=== PATIENT | female | born 1945 | race Asian ===

== ENCOUNTER 2025-05-19 11:25 | Inpatient (IN) | payer OTHER ==
[~2025-05-19] VITALS: Ht 160 cm; Wt 52.9 kg
[2025-05-19] MEDS ORDERED: AMLO-257 PO (11:48)
[2025-05-19 12:05] LABS: COVID AG,FIA SOURCE NASAL SWAB
[2025-05-19 12:09] LABS: PLATELET COUNT (AUTO) 271 K/uL (150-450); RED BLOOD CELL COUNT(AUTO) 4.44 MIL/uL (4.00-5.20); RED CELL DISTRIBUTION WIDTH 14.3 % (11.5-14.5); WHITE BLOOD COUNT (AUTO) 5.0 K/uL (4.5-11.0)
[2025-05-19 12:23] LABS: INFLUENZA TYPE A NEGATIVE FOR TYPE A (NEGATIVE); INFLUENZA TYPE B NEGATIVE FOR TYPE B (NEGATIVE); SARS-COV2 (COVID) ANTIGEN,FIA Negative (Negative)
[2025-05-19 12:26] LABS: CALCIUM, TOTAL 9.9 mg/dL (8.8-10.5); CREATININE 0.96 mg/dL (0.60-1.30); GLOMERULAR FILTR. RATE CALC 56.0 mL/min (>60); GLUCOSE,RANDOM 138.0 mg/dL (70-110); SODIUM SERUM 136.0 mmol/L (136-145); UREA NITROGEN, BLOOD 18.0 mg/dL (7-18)
[2025-05-19 12:31] LABS: APPEARANCE,URINE HAZY (CLEAR); GLUCOSE, URINE (UA) >=1000 mg/dL (NEGATIVE); LEUKOCYTE ESTERASE ,URINE LARGE (NEGATIVE); NITRATE,URINE NEGATIVE (NEGATIVE); OCCULT BLOOD,URINE SMALL (NEGATIVE); SPECIFIC GRAVITIY, URINE 1.007 (1.003-1.030)
[2025-05-19 12:40] LABS: BAND NEUTROPHILS % (MANUAL) 12 % (0-5); LYMPHOCYTES % (MANUAL) 13 % (22-44); MONOCYTES % (MANUAL) 2 % (2-9); SEGMENTED NEUTROPHILS % 73 % (40-70)
[2025-05-19 12:46] LABS: SQUAMOUS EPITHELIAL CELL,UR Moderate /LPF (None Seen)
[2025-05-19] MEDS: KETOROLAC TROMETHAMINE 30 MG/ML VIAL IVP ONE (14:08)
[2025-05-19] MEDS: SODIUM CHLORIDE 0.9% 1,000 ML IV ONE (14:08)
[2025-05-19] MEDS: CefTRIAXone 1 GM/DEXTROSE 50 ML IV ONE (14:08)
[2025-05-19] MEDS: ACETAMINOPHEN 500 MG TABLET PO ONE (14:16)
[2025-05-19 14:56] LABS: LACTIC ACID 1.0 mmol/L (0.4-2.0)
[2025-05-19] MEDS: SODIUM CHLORIDE 0.9% 1,050 ML IV ONE (15:19)
[2025-05-19] MEDS ORDERED: DEXTROSE 50%-WATER 25 GM/50 ML SYRINGE IVP PRN (22:15)
[2025-05-19] MEDS ORDERED: MAGNESIUM HYDROXIDE SUSPENSION 30 ML UDCUP PO PRN (22:15)
[2025-05-19] MEDS ORDERED: BISACODYL 10 MG RECTAL RECTAL SUPPOSITORY PR PRN (22:15)
[2025-05-19] MEDS ORDERED: MORPHINE SULFATE 2 MG/ML SYRINGE IVP PRN (22:15)
[2025-05-19] MEDS ORDERED: ONDANSETRON HCL 4 MG/2 ML VIAL IVP PRN (22:15)
[2025-05-19] MEDS ORDERED: ALBUTEROL SULFATE 2.5 MG/0.5 ML NEB SOLUTION NEB PRN (22:15)
[2025-05-19] MEDS ORDERED: HYDROCODONE/ACETAMINOPHEN 5-325 MG TABLET PO PRN (22:15)
[2025-05-19] MEDS ORDERED: ZOLPIDEM TARTRATE 5 MG TABLET PO PRN (22:15)
[2025-05-19] MEDS ORDERED: IPRATROPIUM BROMIDE 0.5 MG/2.5 ML NEB SOLUTION NEB PRN (22:15)
[2025-05-19] MEDS ORDERED: LOSA-381 PO (22:20)
[2025-05-19] MEDS ORDERED: ATOR10TA69 PO (22:20)
[2025-05-19] MEDS ORDERED: METF-1211 PO (22:20)
[2025-05-19] MEDS ORDERED: PREG100C PO (22:21)
[2025-05-19] MEDS: HEPARIN SODIUM,PORCINE 5,000 UNITS/ML VIAL SQ SCH (23:41)
[2025-05-20] MEDS ORDERED: MORPHINE SULFATE 4 MG/ML SYRINGE IVP PRN (01:27)
[2025-05-20 02:53] VITALS: BP 128/66; PULSE 92; RESP 18; TEMP 99; O2SAT 96
[2025-05-20 06:35] LABS: GLUCOMETER DEV NAME(LOC) 4E.2; GLUCOSE,POINT OF CARE 97 MG/DL (70-110)
[2025-05-20 07:25] VITALS: BP 122/61; PULSE 87; RESP 18; TEMP 98.1; O2SAT 99
[2025-05-20] MEDS: PANTOPRAZOLE SODIUM 40 MG DR TABLET PO SCH (08:26)
[2025-05-20] MEDS: PREGABALIN 50 MG CAPSULE PO SCH (08:26)
[2025-05-20] MEDS: LOSARTAN POTASSIUM 25 MG TABLET PO SCH (08:27)
[2025-05-20] MEDS ORDERED: SODIUM CHLORIDE 0.9% 500 ML IV ONE (11:34)
[2025-05-20] MEDS: CefTRIAXone 1 GM/DEXTROSE 50 ML IV SCH (11:44)
[2025-05-20 15:20] VITALS: BP 140/63; PULSE 90; RESP 20; TEMP 99.9; O2SAT 96
[2025-05-20] MEDS: ACETAMINOPHEN 325 MG TABLET PO PRN (16:29)
[2025-05-20 16:51] LABS: GLUCOMETER DEV NAME(LOC) 4E.2; GLUCOSE,POINT OF CARE 94 MG/DL (70-110)
[2025-05-20 17:45] LABS: GLUCOMETER DEV NAME(LOC) 4E.2; GLUCOSE,POINT OF CARE 118 MG/DL (70-110)
[2025-05-20 19:25] VITALS: BP 110/55; PULSE 89; RESP 18; TEMP 99.3; O2SAT 95
[2025-05-20] MEDS: INSULIN LISPRO 100 UNITS/ML SQ PRN (21:24)
[2025-05-20 21:45] LABS: GLUCOMETER DEV NAME(LOC) 4E.2; GLUCOSE,POINT OF CARE 147 MG/DL (70-110)
[2025-05-21 05:11] VITALS: BP 130/71; PULSE 91; RESP 18; TEMP 98.1; O2SAT 96
[2025-05-21 05:41] LABS: GLUCOMETER DEV NAME(LOC) 4E.2; GLUCOSE,POINT OF CARE 115 MG/DL (70-110)
[2025-05-21 08:00] VITALS: BP 138/64; PULSE 92; RESP 20; TEMP 98.4; O2SAT 98
[2025-05-21 08:06] LABS: PLATELET COUNT (AUTO) 305 K/uL (150-450); RED BLOOD CELL COUNT(AUTO) 4.26 MIL/uL (4.00-5.20); RED CELL DISTRIBUTION WIDTH 13.9 % (11.5-14.5); WHITE BLOOD COUNT (AUTO) 6.7 K/uL (4.5-11.0)
[2025-05-21] MEDS: FLUTICASONE PROPIONATE 50 MCG/SPRAY 16 GM NASAL SPRAY NASAL SCH (08:41)
[2025-05-21 09:07] LABS: CALCIUM, TOTAL 9.0 mg/dL (8.8-10.5); CREATININE 0.67 mg/dL (0.60-1.30); GLOMERULAR FILTR. RATE CALC > 60 mL/min (>60); GLUCOSE,RANDOM 106 mg/dL (70-110); SODIUM SERUM 140 mmol/L (136-145); UREA NITROGEN, BLOOD 10 mg/dL (7-18)
[2025-05-21 09:14] LABS: ASPARTATE AMINOTRANSFERASE 30 U/L (15-37); TOTAL PROTEIN, SERUM 7.3 g/dL (6.4-8.2)
[2025-05-21] MEDS: *CLINICAL-MEROPENEM DOSING CLINICAL ONE (13:22)
[2025-05-21 14:10] LABS: GLUCOMETER DEV NAME(LOC) 4E.2; GLUCOSE,POINT OF CARE 157 MG/DL (70-110)
[2025-05-21] MEDS: MEROPENEM 1 GM in SODIUM CHLORIDE 0.9% 50 ML IV SCH (15:06)
[2025-05-21 16:00] VITALS: BP 138/66; PULSE 90; RESP 19; TEMP 99.9; O2SAT 97
[2025-05-21 20:00] VITALS: BP 121/65; PULSE 73; RESP 18; TEMP 97.8; O2SAT 99
[2025-05-21 20:01] LABS: GLUCOMETER DEV NAME(LOC) 4E.2; GLUCOSE,POINT OF CARE 116 MG/DL (70-110)
[2025-05-21 20:40] LABS: GLUCOMETER DEV NAME(LOC) 4E.2; GLUCOSE,POINT OF CARE 176 MG/DL (70-110)
[2025-05-22 04:00] VITALS: BP 151/63; PULSE 88; RESP 18; TEMP 98.8; O2SAT 97
[2025-05-22 06:06] LABS: GLUCOMETER DEV NAME(LOC) 4E.2; GLUCOSE,POINT OF CARE 180 MG/DL (70-110)
[2025-05-22 08:00] VITALS: BP 158/72; PULSE 83; RESP 18; TEMP 99.5; O2SAT 99
[2025-05-22 09:10] VITALS: TEMP 99.1
[2025-05-22 12:20] LABS: GLUCOMETER DEV NAME(LOC) 4E.2; GLUCOSE,POINT OF CARE 120 MG/DL (70-110)
[2025-05-22 16:00] VITALS: BP 151/79; PULSE 88; RESP 20; TEMP 98.6; O2SAT 98
[2025-05-22 18:01] LABS: GLUCOMETER DEV NAME(LOC) 4E.2; GLUCOSE,POINT OF CARE 162 MG/DL (70-110)
[2025-05-22 19:21] VITALS: BP 131/77; PULSE 94; RESP 18; TEMP 98.4; O2SAT 96
[2025-05-23 02:16] LABS: GLUCOMETER DEV NAME(LOC) 4E.2; GLUCOSE,POINT OF CARE 116 MG/DL (70-110)
[2025-05-23 04:43] VITALS: BP 148/69; PULSE 75; RESP 18; TEMP 98.6; O2SAT 97
[2025-05-23 07:31] LABS: GLUCOMETER DEV NAME(LOC) 4E.2; GLUCOSE,POINT OF CARE 118 MG/DL (70-110)
[2025-05-23 08:00] VITALS: BP 145/78; PULSE 69; RESP 18; TEMP 97.9; O2SAT 97
[2025-05-23 09:13] LABS: PLATELET COUNT (AUTO) 383 K/uL (150-450); RED BLOOD CELL COUNT(AUTO) 4.75 MIL/uL (4.00-5.20); RED CELL DISTRIBUTION WIDTH 14.0 % (11.5-14.5); WHITE BLOOD COUNT (AUTO) 5.8 K/uL (4.5-11.0)
[2025-05-23 09:23] LABS: CALCIUM, TOTAL 9.6 mg/dL (8.8-10.5); CREATININE 0.68 mg/dL (0.60-1.30); GLOMERULAR FILTR. RATE CALC > 60 mL/min (>60); GLUCOSE,RANDOM 123 mg/dL (70-110); SODIUM SERUM 140 mmol/L (136-145); UREA NITROGEN, BLOOD 10 mg/dL (7-18)
[2025-05-23 11:35] LABS: GLUCOMETER DEV NAME(LOC) 4E.2; GLUCOSE,POINT OF CARE 138 MG/DL (70-110)
[2025-05-23 16:09] VITALS: BP 144/74; PULSE 79; RESP 18; TEMP 97.7; O2SAT 100
[2025-05-23 17:30] LABS: GLUCOMETER DEV NAME(LOC) 4E.2; GLUCOSE,POINT OF CARE 98 MG/DL (70-110)
[2025-05-23 20:34] VITALS: BP 144/76; PULSE 84; RESP 20; TEMP 98.6; O2SAT 95
[2025-05-23 21:00] LABS: GLUCOMETER DEV NAME(LOC) 4E.2; GLUCOSE,POINT OF CARE 124 MG/DL (70-110)
[2025-05-24 04:25] VITALS: BP 148/88; PULSE 72; RESP 18; TEMP 98.2; O2SAT 98
[2025-05-24 06:10] LABS: GLUCOMETER DEV NAME(LOC) 4E.2; GLUCOSE,POINT OF CARE 108 MG/DL (70-110)
[2025-05-24 08:00] VITALS: BP 131/74; PULSE 81; RESP 19; TEMP 98.4; O2SAT 97
[2025-05-24 12:25] VITALS: BP 133/67; PULSE 78; RESP 18; TEMP 98; O2SAT 97
[2025-05-24 12:45] LABS: GLUCOMETER DEV NAME(LOC) 4E.2; GLUCOSE,POINT OF CARE 119 MG/DL (70-110)
[2025-05-24 16:00] VITALS: BP 113/69; PULSE 74; RESP 19; TEMP 98.8; O2SAT 98
[2025-05-24 17:51] LABS: GLUCOMETER DEV NAME(LOC) 4E.2; GLUCOSE,POINT OF CARE 104 MG/DL (70-110)
[2025-05-24 20:10] VITALS: BP 123/71; PULSE 88; RESP 19; TEMP 99; O2SAT 97
[2025-05-24 20:46] LABS: GLUCOMETER DEV NAME(LOC) 4E.2; GLUCOSE,POINT OF CARE 152 MG/DL (70-110)
[2025-05-24 22:20] LABS: GLUCOMETER DEV NAME(LOC) 4E.2; GLUCOSE,POINT OF CARE 137 MG/DL (70-110)
[2025-05-25 03:18] VITALS: BP 118/86; PULSE 72; RESP 18; TEMP 98; O2SAT 96
[2025-05-25 06:06] LABS: GLUCOMETER DEV NAME(LOC) 4E.2; GLUCOSE,POINT OF CARE 115 MG/DL (70-110)
[2025-05-25 09:00] VITALS: BP 131/61; PULSE 68; RESP 18; TEMP 98; O2SAT 98
[2025-05-25 12:51] LABS: GLUCOMETER DEV NAME(LOC) 4E.2; GLUCOSE,POINT OF CARE 113 MG/DL (70-110)
[2025-05-25 16:47] VITALS: BP 116/68; PULSE 72; RESP 18; TEMP 98; O2SAT 97
[2025-05-25 18:05] LABS: GLUCOMETER DEV NAME(LOC) 4E.2; GLUCOSE,POINT OF CARE 106 MG/DL (70-110)
[2025-05-25 19:24] VITALS: BP 122/66; PULSE 98; RESP 18; TEMP 97.7; O2SAT 97
[2025-05-25 23:05] LABS: GLUCOMETER DEV NAME(LOC) 4E.2; GLUCOSE,POINT OF CARE 125 MG/DL (70-110)
[2025-05-26 04:21] VITALS: BP 130/56; PULSE 63; RESP 18; TEMP 98.2; O2SAT 96
[2025-05-26 05:30] LABS: GLUCOMETER DEV NAME(LOC) 4E.2; GLUCOSE,POINT OF CARE 122 MG/DL (70-110)
[2025-05-26 08:03] VITALS: BP 134/62; PULSE 85; RESP 18; TEMP 98; O2SAT 97
[2025-05-26] MEDS ORDERED: FLUT16SP NASAL (14:33)
[2025-05-26] MEDS ORDERED: MERO1VIA27 IV (14:35)
[2025-05-26] MEDS ORDERED: PANT-31 PO (14:36)
[2025-05-26] MEDS ORDERED: PREG50 PO (14:37)
[2025-05-26] MEDS ORDERED: ACET-2247 PO (14:37)
[2025-05-26] MEDS ORDERED: ALBU2.5V39 NEB (14:38)
[2025-05-26] MEDS ORDERED: INSU100V SQ (14:39)
[2025-05-26 16:55] VITALS: BP 128/64; PULSE 78; RESP 18; TEMP 98; O2SAT 98
[2025-05-26 19:55] LABS: GLUCOMETER DEV NAME(LOC) 4E.2; GLUCOSE,POINT OF CARE 132 MG/DL (70-110)
[2025-05-26 19:55] LABS: GLUCOMETER DEV NAME(LOC) 4E.2; GLUCOSE,POINT OF CARE 118 MG/DL (70-110)
[2025-05-26 20:00] VITALS: BP 130/65; PULSE 89; RESP 18; TEMP 98.1; O2SAT 95
[2025-05-26 23:40] LABS: GLUCOMETER DEV NAME(LOC) 4E.2; GLUCOSE,POINT OF CARE 144 MG/DL (70-110)
[2025-05-27 04:00] VITALS: BP 117/57; PULSE 64; RESP 16; TEMP 97.7; O2SAT 97
[2025-05-27 06:01] LABS: GLUCOMETER DEV NAME(LOC) 4E.2; GLUCOSE,POINT OF CARE 109 MG/DL (70-110)
== END 2025-05-27 11:52 | DRG 872 ==
LOC: EMS 11:28 → EDH 22:11 → 4E 05-20 02:33
PROVIDERS: ADMIT Hospitalist; ATTEND Hospitalist
DX: A41.51 Sepsis due to Escherichia coli [E. coli] (principal); E44.0 Moderate protein-calorie malnutrition; E11.40 Type 2 diabetes mellitus with diabetic neuropathy, unspecified; E78.5 Hyperlipidemia, unspecified; E86.0 Dehydration; B96.20 Unspecified Escherichia coli [E. coli] as the cause of diseases classified elsewhere; N39.0 Urinary tract infection, site not specified; I10 Essential (primary) hypertension; Z16.24 Resistance to multiple antibiotics; Z20.822 Contact with and (suspected) exposure to COVID-19; Z59.71 Insufficient health insurance coverage; Z79.899 Other long term (current) drug therapy; Z68.20 Body mass index [BMI] 20.0-20.9, adult
CPT/HCPCS: 80048; 80053; 81001; 82962; 83605; 84145; 85025; 87040; 87077; 87086; 87186; 87205; 87804; 93005; 96361; 96365; 96375; 99291; G0378; J0696; J1644; J1885; J2185; J7030; J7040; J7050; 36415-L1; 36415-TC